=== PATIENT | male | born 1995 | race Caucasian/White ===

== ENCOUNTER 2023-09-19 13:55 | Emergency (ER) | payer MEDICAID, SELFPAY ==
[2023-09-19 13:58] VITALS: BP 180/108
[2023-09-19 14:34] VITALS: BP 146/98
[2023-09-19 14:35] VITALS: BP 146/98
--- NOTE | 2023-09-19 18:46 | ED.GENMED ---
History of Present Illness
General
Chief Complaint: Foreign Body Removal
Source: patient
Exam Limitations: none
Time Seen by Provider: 09/19/23 14:14
Nursing documentation reviewed up to this point in time: agreed with
Travel History
Have you had any contact with someone who has COVID-19?: No
Do you have any symptoms of coronavirus? Fever > 100 degrees, chills, cough, shortness of breath, sore throat, loss of taste or smell, muscle aches, or headache?: No
History of Present Illness
History of Present Illness:
28 yo male states 2 hours ago was cleaning his ear with Q tip swab, short while later felt left ear pressure, his brother looked in the ear and told him he saw 'something' in the ear.
Past History
Past History
ED Past Medical History: None
ED Past Surgical History: Tonsilectomy and Other (Lipoma removal left leg)
Social History
Tobacco: Smoker
Alcohol: Occasional
Drug: Marijuana (Rare)
Personal: Single
Living: with family
Employment: Employed
Family History
Family History: Other (Noncontributory)
Review of Systems
Review of Systems
Allergies reviewed?: Yes
All Other Systems: ROS reviewed and negative except as documented in HPI and ROS
EENT: Reports other (mild pressure left ear, questionable FB)
Phy Exam
Physical Exam
Physical Exam:
PHYSICAL EXAMINATION:
General: no apparent distress, not acutely ill
ENT: Both ear canals are clear, TMS normal, no FB
Neuro: alert and oriented.
Psychiatric: well kept. interactive and cooperative
Musculoskeletal: Moves with ease
Skin: Warm, pink.
Course
Vital Signs
Initial and Last Documented VS:
Initial Vital Signs
Temp Pulse Resp BP Pulse Ox
99.0 F 89 16 180/108 99
09/19/23 13:58 09/19/23 13:58 09/19/23 13:58 09/19/23 13:58 09/19/23 13:58
Last Documented Vital Signs
Temp Pulse Resp BP Pulse Ox
99.0 F 86 22 146/98 98
09/19/23 13:58 09/19/23 14:35 09/19/23 14:35 09/19/23 14:35 09/19/23 14:35
MDM/Problems Addressed
Differential Diagnosis Includes:
Ear FB
MDM/Problems Addressed:
28 yo male states 2 hours ago was cleaning his ear with Q tip swab, short while later felt left ear pressure, his brother looked in the ear and told him he saw 'something' in the ear.
Ear exam is normal
*Critical Care Note
Total Time (30-74mins, 75-104mins- exclusive of procedures): Not Applicable
ED Attending Note
-
Portions of this chart may have been created with voice recognition software.� Occasional wrong word or��sound alike� substitutions may have occurred due to the inherent limitations of voice recognition software.
Discharge Plan
Departure
Patient Disposition: Home (Routine Discharge)
Date of Disposition: 09/19/23
Time of Disposition: 14:28
Patient with high blood pressure during this ER visit?: No
Condition: Good
Discharge Problem:
Ear pressure
Prescriptions:
No Action
amoxicillin-pot clavulanate 1 TABLET tablet
1 tab PO Q12 Qty: 20 0RF
ibuprofen 800 MG tablet
800 mg PO QIDPRN PRN (Reason: pain, take with food) Qty: 30 0RF
Referrals:
Donnell Torres MD [Active] - As needed
Activity Restrictions/Additional Instructions:
As we discussed, there is nothing in the ear.
Do not put Q-tips/cotton swabs in the ears.
Interventions
Interventions:
*Risk Screen - Suicide Last Done: 09/19/23 14:29
*General Assessment Last Done: 09/19/23 14:29
*Neglect/Abuse Screening Last Done: 09/19/23 14:29
*Nursing Disposition Last Done: 09/19/23 14:35
Discharge Date and Time
Discharge Date/Time: 09/19/23 14:36
Print Language: MAURITIAN
== END 2023-09-19 14:36 | disposition home or self-care (01) ==
LOC: EMR 13:55
PROVIDERS: EMERGENCY PHYSICIAN Emergency Medicine
DX: Z04.89 Encounter for examination and observation for other specified reasons (principal); F17.200 Nicotine dependence, unspecified, uncomplicated
CPT/HCPCS: 99282